=== PATIENT | male | born 1945 | race Caucasian/White ===

== ENCOUNTER 2022-05-04 11:39 | Day surgery (SDC) | payer MEDICARE ==
[2022-05-04] MEDS ORDERED: Xylocaine 1% Vial 30 ML PF IJ ONE (11:40)
[2022-05-04] MEDS ORDERED: Depo-Medrol 40 MG/ML IM ONE (11:40)
[2022-05-04] MEDS ORDERED: Lactated Ringers 1,000 ML IV ONE (12:51)
[2022-05-04] MEDS ORDERED: DIPRIVAN 200 MG/20 ML IV ONE (13:19)
--- NOTE | 2022-05-04 14:26 | XRAY ---
Indication: Right L4-S1 MBB. Intraoperative fluoroscopy provided for 11 seconds. Single digital spot image submitted for interpretation demonstrates posterior needle tips projecting over the expected right L4-S1 nerve roots. Correlate with intraoperative findings/report. Incidental L3-L4 spinous process fusion hardware.
--- NOTE | 2022-05-04 14:28 | XRAY ---
11 seconds of fluoroscopy was used in surgery for a right L4-S1 MBB.
== END 2022-05-04 13:45 | disposition home or self-care (01) ==
LOC: SDC-PAIN 11:39
PROVIDERS: ATTEND Psychiatry & Neurology Pain Medicine
DX: M47.816 Spondylosis without myelopathy or radiculopathy, lumbar region (principal); Z79.01 Long term (current) use of anticoagulants
CPT/HCPCS: 64493; 64494; 72020; 77002; J1030; J2001; J2704

== ENCOUNTER 2022-06-22 10:47 | Day surgery (SDC) | payer MEDICARE ==
[2022-06-22] MEDS ORDERED: LIDOCAINE HCL 1% 50 MG/5 ML VL PF IJ ONE (10:48)
[2022-06-22] MEDS ORDERED: BUPIVACAINE 0.5% VIAL IJ ONE (10:48)
[2022-06-22] MEDS ORDERED: Depo-Medrol 40 MG/ML IM ONE (10:48)
[2022-06-22] MEDS ORDERED: DIPRIVAN 200 MG/20 ML IV ONE (13:03)
[2022-06-22] MEDS ORDERED: Xylocaine-Mpf 2% 5 Ml Vial ONE (13:05)
--- NOTE | 2022-06-22 14:36 | XRAY ---
Indication: Right L4-S1 RFA. Intraoperative fluoroscopy provided for 22 seconds. 3 digital spot image submitted for interpretation demonstrates posterior needle tips projecting over the expected right L4-S1 nerve roots. Correlate with intraoperative findings/report. Incidental L3-L4 spinous process fusion hardware.
--- NOTE | 2022-06-22 14:56 | XRAY ---
22 seconds of fluoroscopy was used in surgery for a right L4-S1 RFA.
[2022-06-22] MEDS ORDERED: Lactated Ringers 1,000 ML IV ONE (15:34)
== END 2022-06-22 13:45 | disposition home or self-care (01) ==
LOC: SDC-PAIN 10:47
PROVIDERS: ATTEND Psychiatry & Neurology Pain Medicine
DX: M47.816 Spondylosis without myelopathy or radiculopathy, lumbar region (principal); Z79.899 Other long term (current) drug therapy
CPT/HCPCS: 64635; 64636; 72100; 77002; 99100; J1030; J2001; J2704

== ENCOUNTER 2023-04-05 12:44 | Day surgery (SDC) | payer MEDICARE ==
[2023-04-05] MEDS ORDERED: DIPRIVAN 200 MG/20 ML IV ONE (15:20)
[2023-04-05] MEDS ORDERED: Lactated Ringers 1,000 ML IV ONE (15:47)
--- NOTE | 2023-04-05 17:10 | XRAY ---
Indication: Left knee genicular nerve block. Intraoperative fluoroscopy provided for 12 seconds. 3 digital spot image submitted for interpretation demonstrates anterior needle tips projecting medial/lateral supracondylar and medial tibial plateau. Correlate with intraoperative findings/report.
--- NOTE | 2023-04-05 17:10 | XRAY ---
Indication: Right knee genicular nerve block. Intraoperative fluoroscopy provided for 9 seconds. 2 digital spot image submitted for interpretation demonstrates anterior needle tips projecting medial/lateral supracondylar and medial tibial plateau. Correlate with intraoperative findings/report.
--- NOTE | 2023-04-05 17:21 | XRAY ---
9 seconds of fluoroscopy was used in surgery for a right genicular nerve block.
--- NOTE | 2023-04-05 17:21 | XRAY ---
12 seconds of fluoroscopy was used in surgery for a left genicular nerve block.
== END 2023-04-05 15:55 | disposition home or self-care (01) ==
LOC: SDC-PAIN 12:44
PROVIDERS: ATTEND Psychiatry & Neurology Pain Medicine
DX: M17.0 Bilateral primary osteoarthritis of knee (principal); Z79.899 Other long term (current) drug therapy
CPT/HCPCS: 64454; 73560; 77002; J2704